=== PATIENT | female | born 1955 | race Caucasian/White ===

== ENCOUNTER 2020-12-06 06:29 | Emergency (ER) | payer BC ==
--- NOTE | 2020-12-06 06:53 | EDM.PDOC ---
ED HPI GENERAL MEDICAL PROBLEM - General Chief Complaint: General Stated Complaint: left arm numbness Time Seen by Provider: 12/06/20 06:53 Source of Information: Reports: Patient - History of Present Illness INITIAL COMMENTS - FREE TEXT/NARRATIVE: Sadia, 65-year-old female, presents emergency this morning for left arm numbness and inability to use, accompanied by left-sided facial tingling numbnes s. She states she awoke on the couch and was preparing for work when she did not have the use of her left arm. Numbness and tingling with tingling to the facial features. She denies having this upon awakening but it started shortly thereafter. Incident of this similarity 1 month ago with them required no intervention and has not sought any evaluation. She states intermittent issues with the left upper extremity of which she is not sought out services as it is been short- lived. This is occurred at work as well, not only upon awakening, and she states difficulty raising her arms above her head as they induce dizziness. Duration: Waxing/Waning Location: Reports: Upper Extremity, Left Quality: Reports: Burning Severity: Moderate Improves with: Reports: Other (Self resolution) Context: Reports: Activity, Lifting Associated Symptoms: Reports: No Other Symptoms - Related Data Allergies Allergy/AdvReac Type Severity Reaction Status Date / Time ibuprofen Allergy Syncope Verified 12/06/20 07:13 Past Medical History Cardiovascular History: Reports: High Cholesterol Musculoskeletal History: Reports: Other (See Below) Other Musculoskeletal History: Questionable pinched nerve with affect to her arms at times. Neurological History: Reports: Other (See Below) (Dizziness which resolves, prior CT benign) - Past Imaging History Past Imaging History: Reports: CAT Scan, MRI Social & Family History - Family History Family Medical History: No Pertinent Family History - Tobacco Use Tobacco Use Status *Q: Current Every Day Tobacco User Tobacco Use Within Last Twelve Months: Cigarettes Used Tobacco, but Quit: No Smoking Cessation Information Provided To Patient: No Second Hand Smoke Exposure: No - Caffeine Use Caffeine Use: Reports: Coffee ED ROS GENERAL - Review of Systems Review Of Systems: Comprehensive ROS is negative, except as noted in HPI. ED EXAM, GENERAL - Physical Exam Exam: See Below Free Text/Narrative:: Alert, oriented, no acute distress conversing freely. HEENT is negative to discharge or deformity. There is no asymmetry in her facial expression, no numbness or tingling at this time. Her mucous membranes are mildly tacky appearance. Neck is soft supple I do not appreciate lymphadenopathy no JVD. No bruit auscultated. Percussion with reflex hammer over the cervical spine may produce tingling to her left hand on the first attempt but cannot reproduce this any further. Chassis Driver strength is intact. There is no deficits noted to motion of the upper extremities. Positioning of her head does not seem to induce any discomfort. Thorax is raspy I attribute to her smoking. Cardiac is regular. Radial pulse correlates. Positioning of the head does not reproduce any symptoms at this time. No flank pain no abdominal pain. She is placed in a standing position with Romberg test being negative for any drift. She is able to raise her hands above her head at which time auscultation of the clavicles I do not hear any bruit to either side. She denies numbness or dizziness during this maneuver today at this time. Chassis Driver strength is strong when bringing her arms back down with no deficits noted. #1 Interpretation EKG Date: 12/06/20 Time: 06:58 Rhythm: NSR Rate (Beats/Min): 63 Lewis: Normal P-Wave: Present QRS: Normal ST-T: Normal QT: Normal Comparison: NA - No Prior EKG Course - Vital Signs Last Recorded V/S: Last Vital Signs Temp 96.7 F L 12/06/20 07:00 Pulse 77 12/06/20 07:00 Resp 18 12/06/20 07:00 BP 156/71 H 12/06/20 07:00 Pulse Ox 98 12/06/20 07:00 - Orders/Labs/Meds Orders: Active Orders 24 hr Category Date Time Status EKG Documentation Completion [RC] ASDIRECTED Care 12/06/20 06:50 Active Chest 2V [CR] Stat Exams 12/06/20 07:06 Ordered Chest Special 1V [CR] Stat Exams 12/06/20 07:06 Ordered Head wo Cont [CT] Stat Exams 12/06/20 07:05 Ordered EKG 12 Lead [EK] Stat Ther 12/06/20 06:50 Ordered Labs: Laboratory Tests 12/06/20 12/06/20 12/06/20 Range/Units 06:45 06:45 06:45 WBC 8.71 (5.00-10.00) 10^3/uL RBC 4.87 (3.80-5.50) 10^6/uL Hgb 15.7 (12.0-16.0) g/dL Hct 46.1 (37.0-47.0) % MCV 94.7 H (82.0-92.0) fL MCH 32.2 H (27.0-31.0) pg MCHC 34.1 (32.0-36.0) g/dL RDW 13.7 (11.5-14.5) % Plt Count 218 (150-400) 10^3/uL MPV 10.4 (7.4-10.4) fL Immature Gran % (Auto) 0.3 (0.0-5.0) % Neut % (Auto) 54.1 (50.0-70.0) % Lymph % (Auto) 32.4 (20.0-40.0) % [place] % (Auto) 7.6 (2.0-8.0) % Eos % (Auto) 5.3 H (1.0-3.0) % Baso % (Auto) 0.3 (0.0-1.0) % Neut # (Auto) 4.71 (2.50-7.00) 10^3/uL Lymph # (Auto) 2.82 (1.00-4.00) 10^3/uL [place] # (Auto) 0.66 (0.10-0.80) 10^3/uL Eos # (Auto) 0.46 H (0.10-0.30) 10^3/uL Baso # (Auto) 0.03 (0.00-0.10) 10^3/uL Immature Gran # (Auto) 0.03 (0.00-0.50) 10^3/uL APTT 29.1 (22.8-31.4) SEC Sodium 140 (136-145) mmol/L Potassium 3.4 L (3.5-5.1) mmol/L Chloride 103 (98-107) mmol/L Carbon Dioxide 25.5 (21.0-32.0) mmol/L Anion Gap 14.9 (5-15) mmol/L BUN 11 (7-18) mg/dL Creatinine 0.95 (0.51-1.17) mg/dL Est Cr Clr Drug Dosing 54.54 mL/min Estimated GFR (MDRD) 59 mL/min Glucose 120 (70-140) mg/dL Calcium 8.9 (8.7-10.3) mg/dL Total Bilirubin 0.5 (0.2-1.0) mg/dL AST 16 (15-37) U/L ALT 15 (14-63) U/L Alkaline Phosphatase 79 (46-116) U/L Total Protein 7.2 (6.4-8.2) g/dL Albumin 3.65 (3.40-5.00) g/dL Departure - Departure Time of Disposition: 08:47 Disposition: Home, Self-Care 01 Condition: Good Clinical Impression: Hypokalemia, Numbness and tingling of left side of face, Left upper extremity numbness, History of dizziness - Discharge Information *PRESCRIPTION DRUG MONITORING PROGRAM REVIEWED*: Not Applicable *COPY OF PRESCRIPTION DRUG MONITORING REPORT IN PATIENT MICHEL: Not Applicable Referrals: Sandy Sánchez MD [Primary Care Provider] - Forms: ED Department Discharge Additional Instructions: Your potassium level is slightly low. Usually by eating bananas, 1 daily, or potatoes and or potato pillings you will return this to a normal level. You can go on the Internet and look for high potassium containing foods and naturally bring this level up. Regarding your dizziness, and facial numbness, your CT results show no si gnificant findings for this. With the issue of the left arm numbness weakness that occurs, the fact that I can tap on your neck and make tingling in your hand and fingers increases the possibility of nerve impingement. Regarding both those issues of numbness tingling and weakness, you need to contact your clinic to receive further assessment and work-up which may include nerve study and/or MRI to determine the cause of your symptoms. The positional dizziness that occurs may require an evaluation of the vasculature of your neck, similar to the one you state you had done in the past. Strongly encouraged to stop smoking as the microvasculature/small vessel findings on the CT of your brain only worsen with smoking. As we discussed during your visit, sleeping on a couch he is not the best for body positioning, specifically for the neck head and shoulders. Laying on a flat uniform surface as the mattress in the bed or even on the floor is what will keep you more anatomy alignment. Call the clinic for follow-up, return to the emergency department if symptoms develop or worsen outside of clinic hours. Sepsis Event Note (ED) - Focused Exam Vital Signs: Vital Signs Temp Pulse Resp BP Pulse Ox 12/06/20 07:00 96.7 F L 77 18 156/71 H 98 - Problem List & Annotations (1) Left upper extremity numbness SNOMED Code(s): 616607789 Code(s): R20.0 - ANESTHESIA OF SKIN Status: Acute Priority: High (2) Numbness and tingling of left side of face SNOMED Code(s): 87382555 Code(s): R20.0 - ANESTHESIA OF SKIN; R20.2 - PARESTHESIA OF SKIN Status: Acute Priority: High (3) History of dizziness SNOMED Code(s): 512957250 Code(s): Z87.898 - PERSONAL HISTORY OF OTHER SPECIFIED CONDITIONS Status: Chronic Priority: High (4) Hypokalemia SNOMED Code(s): 62746427 Code(s): E87.6 - HYPOKALEMIA Status: Acute Priority: High (5) Smoking addiction SNOMED Code(s): 921637348, 02629162, 861990000 Code(s): F17.200 - NICOTINE DEPENDENCE, UNSPECIFIED, UNCOMPLICATED Status: Acute (6) Smoking greater than 30 pack years SNOMED Code(s): 53651363 Code(s): F17.210 - NICOTINE DEPENDENCE, CIGARETTES, UNCOMPLICATED Status: Chronic Priority: High - Problem List Review Problem List Initiated/Reviewed/Updated: Yes - My Orders Last 24 Hours: My Active Orders 12/06/20 06:50 EKG Documentation Completion [RC] ASDIRECTED EKG 12 Lead [EK] Stat 12/06/20 07:05 Head wo Cont [CT] Stat 12/06/20 07:06 Chest 2V [CR] Stat Chest Special 1V [CR] Stat - Assessment/Plan Last 24 Hours: My Active Orders 12/06/20 06:50 EKG Documentation Completion [RC] ASDIRECTED EKG 12 Lead [EK] Stat 12/06/20 07:05 Head wo Cont [CT] Stat 12/06/20 07:06 Chest 2V [CR] Stat Chest Special 1V [CR] Stat Plan: Your potassium level is slightly low. Usually by eating bananas, 1 daily, or potatoes and or potato pillings you will return this to a normal level. You can go on the Internet and look for high potassium containing foods and naturally bring this level up. Regarding your dizziness, and facial numbness, your CT results show no significant findings for this. With the issue of the left arm numbness weakness that occurs, the fact that I can tap on your neck and make tingling in your hand and fingers increases the possibility of nerve impingement. Regarding both those issues of numbness tingling and weakness, you need to contact your clinic to receive further assessment and work-up which may include nerve study and/or MRI to determine the cause of your symptoms. The positional dizziness that occurs may require an evaluation of the vasculature of your neck, similar to the one you state you had done in the past. Strongly encouraged to stop smoking as the microvasculature/small vessel findings on the CT of your brain only worsen with smoking. As we discussed during your visit, sleeping on a couch he is not the best for body positioning, specifically for the neck head and shoulders. Laying on a flat uniform surface as the mattress in the bed or even on the floor is what will keep you more anatomy alignment. Call the clinic for follow-up, return to the emergency department if symptoms develop or worsen outside of clinic hours.
[2020-12-06 07:03] VITALS: BP 156/71; PULSE 77
[2020-12-06 07:44] LABS: ANION GAP 14.9 mmol/L (5-15)
--- NOTE | 2020-12-06 08:28 | CT ---
[id number] CT/CT Head WO IV EXAM: CT Head WO IV CLINICAL DATA: FACIAL NUMBNESS (LEFT) AND LEFT ARM NUMBNESS; ONSET 1 COMPARISON STUDY: August 2010. FINDINGS: No intracranial hemorrhage identified. Abnormal hypodensity in the subcortical and periventricular white matter of both cerebral hemispheres, most prominent on the right. Findings have progressed since prior examination in 2009. One of these areas extends into the griffiths matter is what appears to be an area of encephalomalacia in the high right parietal lobe. Calvarium intact. Paranasal sinuses and mastoid air cells are clear. IMPRESSION: Hypodensity in the subcortical and periventricular white matter of both cerebral hemispheres, most prominent on the right. Findings are nonspecific but commonly seen as sequela of small vessel disease. If there is an acute change in mental status, acute on chronic small vessel disease is possible. MRI of the brain with and without contrast is recommended. No acute intracranial hemorrhage or extra-axial fluid collection. Gaurav Haynes MD 12/06/20 0827 Thank you for allowing us to participate in the care of your patient.
--- NOTE | 2020-12-06 08:33 | CR ---
[id number] RAD/RAD Chest PA And Lateral EXAM: RAD Chest PA And Lateral INDICATION: LEFT ARM NUMBNESS, 25-PACK YEAR SMOKING. COMPARISON: 2009. DISCUSSION: Chronic central vascular congestion, similar to the prior examination. Heart is normal in size. Bilateral and symmetric lung hyperinflation. Biapical scarring. Calcified granuloma in the lower lobe. IMPRESSION: As above. Gaurav Haynes MD 12/06/20 0832 Thank you for allowing us to participate in the care of your patient.
--- NOTE | 2020-12-06 08:34 | CR ---
[id number] RAD/RAD Chest PA or AP 1V EXAM: RAD Chest PA or AP 1V INDICATION: LEFT ARM NUMBNESS, 25-PACK YEAR SMOKING - LORDOTIC COMPARISON: Earlier today. DISCUSSION: Apical lordotic view demonstrates similar findings compared to earlier today. No visible pneumothorax or other acute findings. IMPRESSION: As above. Gaurav Haynes MD 12/06/20 0833 Thank you for allowing us to participate in the care of your patient.
== END 2020-12-06 09:00 | disposition home or self-care (01) ==
LOC: KA.ED 06:29
DX: R20.2 Paresthesia of skin (principal); E87.6 Hypokalemia; R42 Dizziness and giddiness; Z88.6 Allergy status to analgesic agent; Z72.0 Tobacco use
CPT/HCPCS: 70450; 71045; 71046; 80053; 85025; 85730; 93005; 99284; 99284-25

== ENCOUNTER 2020-12-08 12:29 | Emergency (ER) | payer BC ==
[2020-12-08 13:07] LABS: ANION GAP 13.8 mmol/L (5-15); CHLORIDE,CL 103 mmol/L (98-107); SODIUM,NA 139 mmol/L (136-145)
--- NOTE | 2020-12-08 13:16 | CT ---
[id number] CT/CT Head Stroke Protocol EXAM: CT Head Stroke Protocol CLINICAL DATA: STROKE PROTOCOL. COMPARISON STUDY: December 06, 2020 FINDINGS: Relative hyperdensity of the right middle cerebral artery concerning for hyperdense MCA sign. No intracranial hemorrhage, extra-axial fluid collection or mass. Generalized parenchymal atrophy with scattered areas of nonspecific white matter disease, commonly seen as sequela of chronic microvascular ischemia. Soft tissues are unremarkable. Paranasal sinuses and mastoid air cells are clear. IMPRESSION: Relative hyperdensity of the right middle cerebral artery concerning for hyperdense MCA sign. Further evaluation with CTA and/or MRI of the brain is recommended. Findings discussed with ordering provider at time of dictation. Matheus Cr DO 12/08/20 [id number] Thank you for allowing us to participate in the care of your patient.
--- NOTE | 2020-12-08 13:21 | EDM.PDOC ---
ED HPI GENERAL MEDICAL PROBLEM - General Stated Complaint: STROKE Time Seen by Provider: 12/08/20 12:31 Source of Information: Reports: Patient, Family History Limitations: Reports: No Limitations - History of Present Illness INITIAL COMMENTS - FREE TEXT/NARRATIVE: Patient presents via ambulance with paralysis of left arm and leg, as well as left facial droop and slurred speech. Family was with her when this started and say it was [id number]. She can't walk at all but was walking prior to noon today. says she was in ER two days ago with tingling and weakness of left arm. Had CT. The left arm hasn't returned completely to normal since then. Daughter says patient was quite confused yesterday for about 30 minutes and that she has had episodes of confusion occasionally for the last two months. She takes no medications but is a current smoker with 30+pack year history. - Related Data Allergies Allergy/AdvReac Type Severity Reaction Status Date / Time ibuprofen Allergy Syncope Verified 12/08/20 13:24 Home Meds: Home Meds . 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 Neurological History: Reports: Other (See Below) (Dizziness which resolves, prior CT benign) - Infectious Disease History Infectious Disease History: Reports: Chicken Pox - Past Surgical History HEENT Surgical History: Reports: None GI Surgical History: Reports: Cholecystectomy Musculoskeletal Surgical History: Reports: None - Past Imaging History Past Imaging History: Reports: CAT Scan, MRI Social & Family History - Family History Family Medical History: No Pertinent Family History - Caffeine Use Caffeine Use: Reports: Coffee ED ROS GENERAL - Review of Systems Review Of Systems: See Below (fairly basic due to urgency of setting up tra nsfer) Constitutional: Reports: Weakness. Denies: Fever HEENT: Reports: No Symptoms Respiratory: Denies: Shortness of Breath Cardiovascular: Denies: Chest Pain, Syncope GI/Abdominal: Denies: Abdominal Pain, Vomiting Skin: Reports: No Symptoms Neurological: Reports: Tingling, Trouble Speaking, Difficulty Walking. Denies: Confusion, Headache, Seizure, Syncope Psychiatric: Denies: Agitation, Anxiety, Confusion ED EXAM, NEURO - Physical Exam Exam: See Below Exam Limited By: No Limitations General Appearance: Alert, WD/WN, No Apparent Distress Eye Exam: Bilateral Eye: EOMI Ears: Normal External Exam, Hearing Grossly Normal Nose: Normal Inspection, No Blood Throat/Mouth: Normal Inspection, Other (significant left facial droop with moderately slurred speech ) Head Exam: Atraumatic, Normocephalic Neck: Normal Inspection, Full Range of Motion Respiratory/Chest: No Respiratory Distress, Lungs Clear, Normal Breath Sounds, No Accessory Muscle Use Cardiovascular: Regular Rate, Rhythm, No Murmur GI/Abdominal: Normal Bowel Sounds, Soft, Non-Tender Neurological: Alert, Oriented x 3, Abnormal Sensation (moderately decreased sensation of left hand/fingers), Straight Leg Raise (R), Difficulty Walking (can't walk). No: Normal Dorsiflexion (weak on left), Normal Plantar Flexion (unable on left), Straight Leg Raise (L) Back Exam: Normal Inspection Extremities: Other (can't squeeze with left hand or raise left arm or leg; no pain. Normal right arm exam.) Psychiatric: Normal Affect, Normal Mood Skin Exam: Warm, Dry, Intact, Normal Color, No Rash Course - Vital Signs Last Recorded V/S: Last Vital Signs Temp 96.5 F L 12/08/20 12:35 Pulse 86 12/08/20 13:00 Resp 29 H 12/08/20 13:00 BP 173/112 H 12/08/20 13:00 Pulse Ox 99 12/08/20 13:00 - Orders/Labs/Meds Orders: Active Orders 24 hr Category Date Time Status EKG Documentation Completion [RC] ASDIRECTED Care 12/08/20 13:11 Ordered EKG 12 Lead [EK] Stat Ther 12/08/20 13:10 Ordered Labs: Laboratory Tests 12/08/20 12/08/20 Range/Units 12:25 12:25 WBC 9.10 (5.00-10.00) 10^3/uL RBC 5.13 (3.80-5.50) 10^6/uL Hgb 16.4 H (12.0-16.0) g/dL Hct 48.7 H (37.0-47.0) % MCV 94.9 H (82.0-92.0) fL MCH 32.0 H (27.0-31.0) pg MCHC 33.7 (32.0-36.0) g/dL RDW 13.5 (11.5-14.5) % Plt Count 237 (150-400) 10^3/uL MPV 10.6 H (7.4-10.4) fL Immature Gran % (Auto) 0.3 (0.0-5.0) % Neut % (Auto) 54.0 (50.0-70.0) % Lymph % (Auto) 34.2 (20.0-40.0) % [place] % (Auto) 6.9 (2.0-8.0) % Eos % (Auto) 4.3 H (1.0-3.0) % Baso % (Auto) 0.3 (0.0-1.0) % Neut # (Auto) 4.91 (2.50-7.00) 10^3/uL Lymph # (Auto) 3.11 (1.00-4.00) 10^3/uL [place] # (Auto) 0.63 (0.10-0.80) 10^3/uL Eos # (Auto) 0.39 H (0.10-0.30) 10^3/uL Baso # (Auto) 0.03 (0.00-0.10) 10^3/uL Immature Gran # (Auto) 0.03 (0.00-0.50) 10^3/uL Sodium 139 (136-145) mmol/L Potassium 4.3 (3.5-5.1) mmol/L Chloride 103 (98-107) mmol/L Carbon Dioxide 26.5 (21.0-32.0) mmol/L Anion Gap 13.8 (5-15) mmol/L BUN 12 (7-18) mg/dL Creatinine 0.88 (0.51-1.17) mg/dL Est Cr Clr Drug Dosing TNP Estimated GFR (MDRD) > 60 mL/min Glucose 115 (70-140) mg/dL Calcium 9.4 (8.7-10.3) mg/dL Total Bilirubin 0.5 (0.2-1.0) mg/dL AST 20 (15-37) U/L ALT 21 (14-63) U/L Alkaline Phosphatase 88 (46-116) U/L Total Protein 7.9 (6.4-8.2) g/dL Albumin 3.96 (3.40-5.00) g/dL - Re-Assessments/Exams Free Text/Narrative Re-Assessment/Exam: 12/08/20 13:30 Discussed findings and recommendations with patient and family. They want her in . I discussed case with Dr. Morales, neurologist, who accepts for immediate transfer. Doesn't advise TPA due to symptoms the past couple of days. Radiologist thinks he sees a thrombus in the middle cerebral artery. When patient arrived I requested EMS to stay for prompt departure which they did. Patient did not show any deterioration during ER course but symptoms continued. Departure - Departure Time of Disposition: 13:28 Disposition: DC/Tfer to Acute Hospital 02 Condition: Fair Clinical Impression: Acute embolic stroke - Discharge Information Sepsis Event Note (ED) - Focused Exam Vital Signs: Vital Signs Temp Pulse Resp BP Pulse Ox 12/08/20 13:00 86 29 H 173/112 H 99 12/08/20 12:45 72 21 H 151/115 H 12/08/20 12:35 96.5 F L 71 26 H 212/86 H 98 - My Orders Last 24 Hours: My Active Orders 12/08/20 13:10 EKG 12 Lead [EK] Stat 12/08/20 13:11 EKG Documentation Completion [RC] ASDIRECTED - Assessment/Plan Last 24 Hours: My Active Orders 12/08/20 13:10 EKG 12 Lead [EK] Stat 12/08/20 13:11 EKG Documentation Completion [RC] ASDIRECTED
[2020-12-08 13:33] VITALS: BP 173/112; PULSE 86
[2020-12-08] MEDS ORDERED: Sodium Chloride 0.9% 10 ML Syringe FLUSH PRN (13:35)
== END 2020-12-08 13:03 ==
LOC: KA.ED 12:29
DX: I63.10 Cerebral infarction due to embolism of unspecified precerebral artery (principal); Z88.6 Allergy status to analgesic agent
CPT/HCPCS: 70450; 80053; 85025; 93005; 99285; 99285-25

== ENCOUNTER 2021-02-18 14:18 | Emergency (ER) | payer BC ==
--- NOTE | 2021-02-18 15:07 | EDM.PDOC ---
ED HPI GENERAL MEDICAL PROBLEM - General Chief Complaint: General Stated Complaint: GOT DIZZY AND FELL AND HIT HER HEAD AND LIP Time Seen by Provider: 02/18/21 14:25 Source of Information: Reports: Patient, Family (son) History Limitations: Reports: No Limitations - History of Present Illness INITIAL COMMENTS - FREE TEXT/NARRATIVE: 65-year-old female presents to the emergency room accompanied with her son for evaluation of head trauma. Patient felt she was lightheaded and fell striking the back of her head just prior to arrival to the emergency room. Her son heard her fall and evaluated her and seen her on the floor. She was conscious. Patient reports she did not lose consciousness. She had a goose egg on the back of her head where she thinks she struck it on the sink. 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 The pre-existing deficit of her left upper extremity. She has some gait disturbance and has been using a wheelchair pushing it as a walker. She does use a lifting belt which her son helps her with. She denies significant headache other than the area of where she struck it she feels mild discomfort. She is not experience any nausea or vomiting. She denies any chest pain or shortness of breath. She has not been diaphoretic. She is conversive and is able to answer my questions appropriately. Onset: Today Onset Date: 02/18/21 Onset Time: 13:00 Duration: Improving Location: Reports: Head, Other (left upper lip) Quality: Reports: Ache Severity: Mild Improves with: Reports: Rest Worsens with: Reports: None Context: Reports: Trauma (fall in bathroom) Associated Symptoms: Reports: Other (lighheaded). Denies: Chest Pain, Cough, Diaphoresis, Fever/Chills, Headaches, Nausea/Vomiting, Seizure, Shortness of Breath, Syncope - Related Data Allergies Allergy/AdvReac Type Severity Reaction Status Date / Time ibuprofen Allergy Syncope Verified 02/18/21 14:34 Home Meds: Home Meds Clopidogrel [Plavix] 75 mg PO DAILY 02/18/21 [History] Sertraline [Zoloft] 100 mg PO BEDTIME 02/18/21 [History] atorvaSTATin [Lipitor] 80 mg PO BEDTIME 02/18/21 [History] hydrOXYzine pamoate [Hydroxyzine Pamoate] 25 mg PO DAILY 02/18/21 [History] ramipriL [Altace] 1.25 mg PO DAILY 02/18/21 [History] Past Medical History HEENT History: Reports: Impaired Vision Cardiovascular History: Reports: High Cholesterol Respiratory History: Reports: None Gastrointestinal History: Reports: None Genitourinary History: Reports: None 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 left sided weakness Neurological History: Reports: CVA, Other (See Below) Other Neuro History: left sided weakness Endocrine/Metabolic History: Reports: None Dermatologic History: Reports: None - Infectious Disease History Infectious Disease History: Reports: Chicken Pox - Past Surgical History HEENT Surgical History: Reports: None Cardiovascular Surgical History: Reports: None Respiratory Surgical History: Reports: None GI Surgical History: Reports: Cholecystectomy Female Surgical History: Reports: None Endocrine Surgical History: Reports: None Neurological Surgical History: Reports: None Musculoskeletal Surgical History: Reports: None - Past Imaging History Past Imaging History: Reports: CAT Scan, MRI Social & Family History - Family History Family Medical History: No Pertinent Family History - Tobacco Use Tobacco Use Status *Q: Former Tobacco User Used Tobacco, but Quit: Yes Month/Year Tobacco Last Used: quit december 2020 - Caffeine Use Caffeine Use: Reports: Soda - Recreational Drug Use Recreational Drug Use: No ED ROS GENERAL - Review of Systems Review Of Systems: See Below Constitutional: Reports: No Symptoms HEENT: Reports: No Symptoms Respiratory: Reports: No Symptoms Cardiovascular: Reports: Lightheadedness Endocrine: Reports: No Symptoms GI/Abdominal: Reports: No Symptoms : Reports: No Symptoms Musculoskeletal: Reports: Other (pre-extisting weakness) Neurological: Reports: Dizziness, Headache (posterior, hematoma scalp), Pre- Existing Deficit (left upper extremity), Difficulty Walking (pre-existing). Denies: Trouble Speaking Psychiatric: Reports: No Symptoms Hematologic/Lymphatic: Reports: Easy Bleeding (plavix) Immunologic: Reports: No Symptoms ED EXAM, GENERAL - Physical Exam Exam: See Below Exam Limited By: No Limitations General Appearance: Alert, WD/WN, No Apparent Distress Eye Exam: Bilateral Eye: EOMI, PERRL Ears: Normal External Exam, Normal Canal, Hearing Grossly Normal, Normal TMs Ear Exam: Bilateral Ear: Auricle Normal, Canal Normal, TM normal Nose: Normal Inspection Throat/Mouth: Normal Teeth, Normal Oropharynx, Normal Voice, No Airway Compromise, Other (upper left lip bruise tooth gumaro) Head: Other (occiptial hematoma) Neck: Normal Inspection, Supple, Non-Tender, Full Range of Motion (No pain with gentle neck range of motion), Tender Lateral (Paraspinal neck tenderness to the left). No: Tender Midline Respiratory/Chest: No Respiratory Distress, Lungs Clear, Normal Breath Sounds, No Accessory Muscle Use Cardiovascular: Normal Peripheral Pulses, Regular Rate, Rhythm, No Murmur Peripheral Pulses: 1+: Carotid (L), Carotid (R), Radial (L), Radial (R) GI/Abdominal: Soft, Non-Tender Back Exam: Normal Inspection Extremities: Normal Range of Motion (Right upper extremity bilateral lower extremities, motor strengths are 5 out of 5 of the right upper extremity and bilateral lower extremity on manual muscle testing. Pre-existing deficit of the right upper extremity with manual testing of finger abduction wrist extension biceps triceps and shoulde), Non-Tender, Pedal Edema (left arm swelling pre- existing) Neurological: Alert, Oriented, CN II-XII Intact (Cranial nerves II through XII grossly intact with the exception of a pre-existing deficit of her left upper extremity), Normal Reflexes, Abnormal Gait (Unsteady, pre-existing), Sensory/Motor Deficit (Left upper extremity, pre-existing), Other (Clonus is 2 beats bilaterally) Psychiatric: Normal Mood, Flat Affect Skin Exam: Warm, Dry, Intact, Normal Color, No Rash Lymphatic: No Adenopathy Course - Vital Signs Last Recorded V/S: Last Vital Signs Temp 97.5 F 02/18/21 14:29 Pulse 73 02/18/21 15:10 Resp 18 02/18/21 15:10 BP 147/64 H 02/18/21 15:10 Pulse Ox 97 02/18/21 15:10 - Orders/Labs/Meds Orders: Active Orders 24 hr Category Date Time Status Peripheral IV Care [RC] . DIRECTED Care 02/18/21 15:30 Active Sodium Chloride 0.9% [Saline Flush] Med 02/18/21 15:30 Active 10 ml FLUSH Q8HR PRN Peripheral IV Insertion Adult [OM.PC] Routine Oth 02/18/21 15:30 Ordered Medication Orders Sodium Chloride (Sodium Chloride 0.9% 10 Ml Syringe) 10 ml FLUSH Q8HR PRN PRN Reason: keep vein open Meds: Medications Generic Name Dose Route Start Last Admin Trade Name Freq PRN Reason Stop Dose Admin Sodium Chloride 10 ml 02/18/21 15:30 Sodium Chloride 0.9% 10 Ml Syringe FLUSH Q8HR PRN keep vein open - Radiology Interpretation Free Text/Narrative:: CT head stroke protocol Findings: There is a 5 mm wide acute right frontal subdural hematoma that was not present last November. There is a right frontal embolic infarction that is occurred since November. There is no paronychial hemorrhage. There is a small right occipital soft tissue hematoma Impression: Small degree of intracranial hemorrhage, old right frontal embolic infarction - Re-Assessments/Exams Free Text/Narrative Re-Assessment/Exam: 02/18/21 16:04 Patient has not had any change in her neurological examination. 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 DIRECTED Sodium Chloride 0.9% [Saline Flush] 10 ml FLUSH Q8HR PRN Peripheral IV Insertion Adult [OM.PC] Routine - Assessment/Plan Last 24 Hours: My Active Orders 02/18/21 15:30 Peripheral IV Care [RC] . 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 Recommend transfer to [place] [id number] for close monitoring and neurology consultation. Patient will be transferred to the [place] [id number] ER accepted by ER physician Dr. Baldwin. Patient will be transferred by ground ambulance. Patient is in stable condition.
--- NOTE | 2021-02-18 15:22 | CT ---
[id number] CT/CT Head Stroke Protocol Exam: CT Head Stroke Protocol Clinical Data: TRAUMA COMPARISON: CORRELATION IS MADE WITH DECEMBER 08, 2020 FINDINGS: There is a 5 mm wide acute right frontal subdural hematoma that was not present last November. There is a right frontal embolic infarction that has occurred since November. There is no parenchymal hemorrhage There is a small right occipital soft tissue hematoma Report called IMPRESSION: SMALL DEGREE OF INTRACRANIAL HEMORRHAGE OLD RIGHT FRONTAL EMBOLIC INFARCTION Franc Clark MD 02/18/21 0511 Thank you for allowing us to participate in the care of your patient.
[2021-02-18] MEDS: Sodium Chloride 0.9% 10 ML Syringe FLUSH PRN (15:32)
[2021-02-18 16:02] VITALS: BP 133/64; PULSE 70
== END 2021-02-18 16:10 ==
LOC: KA.ED 14:18
DX: S06.5X0A Traumatic subdural hemorrhage without loss of consciousness, initial encounter (principal); I63.421 Cerebral infarction due to embolism of right anterior cerebral artery; E78.00 Pure hypercholesterolemia, unspecified; Z88.8 Allergy status to other drugs, medicaments and biological substances; Z87.891 Personal history of nicotine dependence; Z79.899 Other long term (current) drug therapy; Z79.02 Long term (current) use of antithrombotics/antiplatelets; W18.09XA Striking against other object with subsequent fall, initial encounter; Y92.002 Bathroom of unspecified non-institutional (private) residence as the place of occurrence of the external cause
CPT/HCPCS: 70450; 99284; 99285-25

== ENCOUNTER 2021-06-08 13:12 | Emergency (ER) | payer BC ==
--- NOTE | 2021-06-08 13:50 | EDM.PDOC ---
ED HPI GENERAL MEDICAL PROBLEM - General Chief Complaint: General Stated Complaint: FELL Time Seen by Provider: 06/08/21 13:31 Source of Information: Reports: Patient, Family History Limitations: Reports: No Limitations - History of Present Illness INITIAL COMMENTS - FREE TEXT/NARRATIVE: Patient presents with pain, swelling, bruising below left eye; pain in left hand and wrist, after falling today. She thinks she hit her head on some dinner trays. She denies LOC or vision change. She had a stroke in the past with residual left side weakness: she cannot use left arm much at all, she can walk with left leg but it is weaker than the right since her stroke. A couple of months after the stroke she fell and hit the back of her head; she was on blood thinners at the time and had a small bleed. She was transferred to [facility] with that but it resolved. She is now not on blood thinners anymore but is concerned about another bleed and would like a head CT. - Related Data Allergies Allergy/AdvReac Type Severity Reaction Status Date / Time ibuprofen Allergy Syncope Verified 06/08/21 13:23 Home Meds: Home Meds Sertraline [Zoloft] 150 mg PO BEDTIME 02/18/21 [History] hydrOXYzine pamoate [Hydroxyzine Pamoate] 25 mg PO DAILY PRN 02/18/21 [History] ramipriL [Altace] 1.25 mg PO DAILY 02/18/21 [History] Aspirin [Ecotrin EC] 325 mg PO DAILY 06/08/21 [History] Multivitamin with Iron [Multivitamins with Iron] 1 tab PO DAILY 06/08/21 [History] Rosuvastatin Calcium [Crestor] 40 mg PO BEDTIME 06/08/21 [History] Past Medical History HEENT History: Reports: Impaired Vision Cardiovascular History: Reports: High Cholesterol Respiratory History: Reports: None Gastrointestinal History: Reports: None Genitourinary History: Reports: None 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 left sided weakness Neurological History: Reports: CVA, Other (See Below) Other Neuro History: left sided weakness Endocrine/Metabolic History: Reports: None Dermatologic History: Reports: None - Infectious Disease History Infectious Disease History: Reports: Chicken Pox - Past Surgical History HEENT Surgical History: Reports: None Cardiovascular Surgical History: Reports: None Respiratory Surgical History: Reports: None GI Surgical History: Reports: Cholecystectomy Female Surgical History: Reports: None Endocrine Surgical History: Reports: None Neurological Surgical History: Reports: None Musculoskeletal Surgical History: Reports: None - Past Imaging History Past Imaging History: Reports: CAT Scan, MRI Social & Family History - Family History Family Medical History: No Pertinent Family History - Tobacco Use Tobacco Use Status *Q: Former Tobacco User Used Tobacco, but Quit: Yes Month/Year Tobacco Last Used: quit 7 mo ago - Caffeine Use Caffeine Use: Reports: Soda - Recreational Drug Use Recreational Drug Use: No ED ROS GENERAL - Review of Systems Review Of Systems: See Below Constitutional: Denies: Fever, Chills, Malaise HEENT: Denies: Ear Pain, Throat Pain, Vision Change Respiratory: Denies: Shortness of Breath, Cough Cardiovascular: Denies: Chest Pain, Lightheadedness, Syncope GI/Abdominal: Denies: Abdominal Pain, Vomiting : Denies: Dysuria, Flank Pain Musculoskeletal: Reports: Hand Pain. Denies: Neck Pain, Shoulder Pain, Arm Pain, Back Pain, Leg Pain Skin: Denies: Cyanosis, Jaundice, Mottled, Pallor, Diaphoresis Neurological: Denies: Confusion, Dizziness, Headache, Seizure, Syncope, Trouble Speaking Psychiatric: Reports: Anxiety. Denies: Agitation, Confusion Hematologic/Lymphatic: Denies: Easy Bleeding ED EXAM, GENERAL - Physical Exam Exam: See Below Exam Limited By: No Limitations General Appearance: Alert, WD/WN, No Apparent Distress Eye Exam: Right Eye: Normal Inspection (Below left eye there is ecchymosis, swelling and a small laceration that is shallow and not gaping), Bilateral Eye: EOMI, PERRL Ears: Normal External Exam, Normal Canal, Hearing Grossly Normal, Normal TMs Nose: Normal Mucosa, Other (very slight bleeding from left nostril) Throat/Mouth: Normal Inspection, Normal Lips, Normal Voice, No Airway Compromise Head: Facial Swelling (left upper cheek). No: Facial Tenderness, Sinus Tenderness Neck: Normal Inspection, Supple, Non-Tender, Full Range of Motion. No: Tender Lateral, Tender Midline Respiratory/Chest: No Respiratory Distress, Lungs Clear, Normal Breath Sounds, No Accessory Muscle Use Cardiovascular: Regular Rate, Rhythm, No Murmur Back Exam: Normal Inspection, Full Range of Motion. No: CVA Tenderness (L), CVA Tenderness (R), Paraspinal Tenderness, Vertebral Tenderness Extremities: Other (Left hand is nearly completed paralyzed. There is pain to palpation of radial wrist and 1-3 metacarpals. No deformity.) Neurological: Alert, Oriented, CN II-XII Intact, Normal Cognition, No Motor/Sensory Deficits (nothing acute) Psychiatric: Normal Affect, Normal Mood Skin Exam: Warm, Dry, Normal Color, No Rash Course - Vital Signs Last Recorded V/S: Last Vital Signs Temp 97.0 F 06/08/21 13:17 Pulse 72 06/08/21 14:15 Resp 18 06/08/21 14:15 BP 157/73 H 06/08/21 14:15 Pulse Ox 98 06/08/21 14:15 - Orders/Labs/Meds Orders: Active Orders 24 hr Category Date Time Status Hand Comp Min 3V Lt [CR] Stat Exams 06/08/21 13:41 Ordered Wrist Comp Min 3V Lt [CR] Stat Exams 06/08/21 13:42 Ordered - Re-Assessments/Exams Free Text/Narrative Re-Assessment/Exam: 06/08/21 15:14 The superficial cheek laceration was cleaned and secured with Dermabond. The CT shows 11 mm acute/subacute right subdural hematoma, and 4 mm subacute subdural hematoma on left. This is noticeably changed from the CT with bleed in February 2021 per radiologist. Radiologist also reports fractures of 2-4 left proximal phalangeal base, non- displaced, left hand. 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 I discussed findings and recommendation with patient and family. They would like to go to [facility]. I discussed case with Dr. Sewell, hospitalist/ER who accepted for transfer. Patient stable at discharge. Departure - Departure Time of Disposition: 15:10 Disposition: DC/Tfer to Acute Hospital 02 Condition: Good Clinical Impression: Subdural hematoma, acute Phalanx, proximal fracture of finger Qualifiers: Encounter type: initial encounter Finger: middle finger Fracture type: closed Fracture alignment: nondisplaced Laterality: left Qualified Code(s): S62.643A - Nondisplaced fracture of proximal phalanx of left middle finger, initial encounter for closed fracture - Discharge Information Referrals: Sandy Sánchez MD [Primary Care Provider] - Forms: ED Department Discharge Sepsis Event Note (ED) - Evaluation Sepsis Screening Result: No Definite Risk - Focused Exam Vital Signs: Vital Signs Temp Pulse Resp BP Pulse Ox 06/08/21 14:15 72 18 157/73 H 98 06/08/21 14:00 72 18 150/80 H 98 06/08/21 13:17 97.0 F 81 18 143/124 H 94 L - My Orders Last 24 Hours: My Active Orders 06/08/21 13:41 Hand Comp Min 3V Lt [CR] Stat 06/08/21 13:42 Wrist Comp Min 3V Lt [CR] Stat - Assessment/Plan Last 24 Hours: My Active Orders 06/08/21 13:41 Hand Comp Min 3V Lt [CR] Stat 06/08/21 13:42 Wrist Comp Min 3V Lt [CR] Stat
--- NOTE | 2021-06-08 14:30 | CT ---
[id number] CT/CT Head WO IV EXAM: NONCONTRAST HEAD CT INDICATION: PAIN IN LEFT HAND/FINGERS. Fall. COMPARISON: February 18, 2021. DISCUSSION: There are bilateral cerebral convexity subdural hematomas with acute and subacute appearing component on the right with a maximum thickness of 11 mm and subacute components on the left measuring up to 4 mm in thickness. There is mild effacement of the underlying cerebral sulci with no significant associated midline shift or other evidence of impending herniation. The right-sided subdural is significantly larger than on the February 18, 2021 exam. Expected evolutionary changes right middle cerebral artery territory infarct with a large area of encephalomalacia in the right frontal lobe and smaller foci of encephalomalacia in the parietal lobe. No acute territorial infarct, hydrocephalus or intracranial proximal hemorrhage. There are mild chronic small vessel ischemic changes and there is at least mild generalized atrophy. Partial left mastoid effusion. Mild bilateral ethmoid sinus mucosal thickening. Results called at time of dictation. IMPRESSION: 1. 11 mm mixed acute and subacute right cerebral convexity subdural hematoma. 2. 4 mm subacute left cerebral convexity subdural hematoma. Ronak Nolen MD 06/08/21 0008 Thank you for allowing us to participate in the care of your patient.
--- NOTE | 2021-06-08 14:43 | CR ---
[id number] RAD/RAD Wrist Left 3V Min EXAM: RAD Wrist Left 3V Min INDICATION: PAIN RADIAL WRIST. COMPARISON: None. DISCUSSION: Osteopenia. Advanced first carpometacarpal osteoarthritis with milder degenerative changes throughout the remaining wrist. Acute minimally angulated second, third and fourth proximal phalangeal base fractures. Tiny chronic ununited ulnar styloid fracture. IMPRESSION: 1. Acute mildly angulated second through fourth proximal phalangeal base fractures. Ronak Nolen MD 06/08/21 0881 Thank you for allowing us to participate in the care of your patient.
[2021-06-08 15:06] VITALS: BP 136/77; PULSE 70
== END 2021-06-08 15:25 ==
LOC: KA.ED 13:12
DX: S06.5X0A Traumatic subdural hemorrhage without loss of consciousness, initial encounter (principal); S62.643A Nondisplaced fracture of proximal phalanx of left middle finger, initial encounter for closed fracture; S01.81XA Laceration without foreign body of other part of head, initial encounter; E78.00 Pure hypercholesterolemia, unspecified; Z87.891 Personal history of nicotine dependence; Z88.6 Allergy status to analgesic agent; Z79.82 Long term (current) use of aspirin; Z79.899 Other long term (current) drug therapy; W18.30XA Fall on same level, unspecified, initial encounter
CPT/HCPCS: 12011; 70450; 73110-LT; 99284; 99285-25

== ENCOUNTER 2025-01-26 20:30 | Emergency (ER) | payer MEDICARE, OTHER ==
[2025-01-26 23:00] VITALS: BP 135/70; PULSE 79
== END 2025-01-26 21:54 | disposition home or self-care (01) ==
LOC: KA.ED 20:30
DX: S00.03XA Contusion of scalp, initial encounter (principal); E78.00 Pure hypercholesterolemia, unspecified; N18.30 Chronic kidney disease, stage 3 unspecified; Z88.1 Allergy status to other antibiotic agents; Z88.5 Allergy status to narcotic agent; Z79.82 Long term (current) use of aspirin; Z79.85 Long-term (current) use of injectable non-insulin antidiabetic drugs; Z79.84 Long term (current) use of oral hypoglycemic drugs; W01.0XXA Fall on same level from slipping, tripping and stumbling without subsequent striking against object, initial encounter; Y93.89 Activity, other specified
CPT/HCPCS: 70450; 99283